=== PATIENT | female | born 1965 | race Caucasian/White ===

== ENCOUNTER 2020-03-01 11:29 | Emergency (ER) | payer BC, OTHER ==
[2020-03-01 11:44] VITALS: PULSE 98
[2020-03-01] MEDS ORDERED: Sodium Chloride 0.9% 10 ML Syringe FLUSH PRN (11:57)
[2020-03-01] MEDS ORDERED: Iopamidol 612 MG/ML 100 ML Bottle IVPUSH ONE (12:15)
[2020-03-01] MEDS ORDERED: Sodium Chloride 0.9% 1,000 ML IV ONE (12:44)
[2020-03-01 12:47] LABS: ANION GAP 16.5 mEq/L (7-13); CHLORIDE,CL 101 mmol/L (98-107); SODIUM,NA 138 mmol/L (136-145)
[2020-03-01] MEDS ORDERED: Ondansetron 4 MG/2 ML SDV IVPUSH ONE ×2 (12:49→14:55)
[2020-03-01] MEDS ORDERED: fentaNYL 100 MCG/2 ML SDV IVPUSH ONE ×2 (12:54→14:51)
--- NOTE | 2020-03-01 13:11 | CT ---
PROCEDURE INFORMATION: Exam: CT Abdomen And Pelvis Without And With Contrast; Kidneys Exam date and time: 03/01/2020 12:22 PM Age: 54 years old Clinical indication: Abdominal pain; Localized; Left; Additional info: Hematuria TECHNIQUE: Imaging protocol: Computed tomography of the abdomen and pelvis without and with intravenous contrast. Exam focused on the kidneys. Radiation optimization: All CT scans at this facility use at least one of these dose optimization techniques: automated exposure control; mA and/or kV adjustment per patient size (includes targeted exams where dose is matched to clinical indication); or iterative reconstruction. Contrast material: ISOVUE 300; Contrast volume: 100 ml; Contrast route: INTRAVENOUS (IV); COMPARISON: No relevant prior studies available. FINDINGS: Lungs: Liver: Normal. Gallbladder and bile ducts: Gallstone. Pancreas: Normal. Spleen: Normal Adrenals: Normal. Kidneys and ureters: Enhancing inhomogeneous left upper pole renal cortical mass 8.3 x 8.3 x 7.5 cm. Tortuous enlarged veins draining the left upper pole mass. The left renal pelvis is distended due to the presence of hyperdense material or fluid that extends into and through the full length of the left ureter, also slightly enlarged, and is associated with a bladder mass mass surrounded by that measures up to 5.3 x 2.9 cm. The right kidney is normal. There is a 7 mm nonenhancing hypodensity in mid left renal cortex which is compatible with a benign cyst. Accessory right renal artery. Stomach and bowel: Mild colonic diverticulosis. Appendix: Normal appendix. Intraperitoneal space: No ascites, pneumoperitoneum or peritoneal lesion. Lymph nodes: No mesenteric, retroperitoneal or inguinal adenopathy. Vasculature: No occlusion, dissection or aneurysm. Bladder: Normal. Reproductive: Normal uterus and ovaries. Bones/joints: No acute fracture or suspicious osseous lesion. Soft tissues: No mass or hernia. IMPRESSION: Large in highly suspicious left upper pole renal mass 8.3 x 0.3 x 7.5 cm seen in association with masslike high density material extending throughout the left renal collecting system and collecting in the bladder. This indicates presence of blood clot throughout the left urinary collecting system. There are no suspicious associated findings such as venous invasion or thrombosis or retroperitoneal adenopathy. Urologic consultation should be performed.
[2020-03-01 15:02] VITALS: BP 184/96
--- NOTE | 2020-03-01 15:09 | EDM.PDOC ---
Scribed by Dariela Tavarez 03/01/20 [id number] for Chelsea Alvarenga MD ED HPI GENERAL MEDICAL PROBLEM - General Chief Complaint: Genitourinary Problem Stated Complaint: kidney stones Time Seen by Provider: 03/01/20 11:47 Source of Information: Reports: Patient, RN, RN Notes Reviewed History Limitations: Reports: No Limitations - History of Present Illness INITIAL COMMENTS - FREE TEXT/NARRATIVE: Patient presents to ED stating she has blood in her urine as well as lower abdominal cramping. This started this morning with a little blood. Then came the cramping and the pain radiates around her left side to her back. Currently an achy feeling. Now it has progressed to bleeding all the time, not just when she pees. No fevers or chills. Has had kidney stones before. She has had bladder prolapse before. She had surgical for the bladder prolapse. She has a history of IBS. Last period was 10 to 12 years when she went through early menopause. Up to date on health maintenance. Onset: Today Duration: Getting Worse Location: Reports: Abdomen, Back Quality: Reports: Ache Severity: Moderate Improves with: Reports: None, Immobilization Worsens with: Reports: None Associated Symptoms: Reports: No Other Symptoms - Related Data Allergies Allergy/AdvReac Type Severity Reaction Status Date / Time amoxicillin [From Augmentin] Allergy Diarrhea Verified 06/02/16 07:10 azithromycin Allergy Rash Verified 06/02/16 07:10 cefdinir [From Omnicef] Allergy Rash Verified 06/02/16 07:10 ceftriaxone Allergy Rash Verified 06/02/16 07:10 clavulanic acid Allergy Diarrhea Verified 06/02/16 07:10 [From Augmentin] codeine Allergy Rash Verified 06/02/16 07:10 ibuprofen Allergy Rash Verified 06/02/16 07:10 ketorolac Allergy Rash Verified 06/02/16 07:10 metronidazole [From Flagyl] Allergy Rash Verified 06/02/16 07:10 Sulfa (Sulfonamide Allergy Rash Verified 06/02/16 07:10 Antibiotics) Home Meds: Home Meds Calcium Carbonate/Vitamin D3 [Calcium 600 + Vit D 400 Softgl] 1 tab PO BID 05/31/16 [History] Esomeprazole Magnesium [Nexium] 1 tab PO DAILY 05/31/16 [History] Multivitamin [Multivitamins] 1 tab PO DAILY 05/31/16 [History] Sertraline [Zoloft] 150 mg PO DAILY 05/31/16 [History] Past Medical History HEENT History: Reports: Allergic Rhinitis, Sinusitis Cardiovascular History: Reports: High Cholesterol Respiratory History: Reports: None Gastrointestinal History: Reports: GERD, Irritable Bowel Syndrome Genitourinary History: [employer] History: Reports: Musculoskeletal History: Reports: Arthritis Neurological History: Reports: None Psychiatric History: Reports: Anxiety, Panic Attack Endocrine/Metabolic History: Reports: None Hematologic History: Reports: None Immunologic History: Reports: None Oncologic (Cancer) History: Reports: None Dermatologic History: Reports: None - Infectious Disease History Infectious Disease History: Reports: Chicken Pox - Past Surgical History HEENT Surgical History: Reports: Naso-Sinus Surgery Female Surgical History: Reports: Breast Biopsy, LEEP, Other (See Below) Social & Family History - Family History Family Medical History: Noncontributory - Caffeine Use Caffeine Use: Reports: Coffee ED ROS GENERAL - Review of Systems Review Of Systems: Comprehensive ROS is negative, except as noted in HPI. ED EXAM, RENAL/ - Physical Exam Exam: See Below Exam Limited By: No Limitations General Appearance: Alert, WD/WN, No Apparent Distress Eye Exam: Bilateral Eye: EOMI, Normal Inspection, PERRL Ears: Normal External Exam, Normal Canal, Hearing Grossly Normal, Normal TMs Nose: Normal Inspection, Normal Mucosa, No Blood Throat/Mouth: Normal Inspection, Normal Lips, Normal Teeth, Normal Gums, Normal Oropharynx, Normal Voice, No Airway Compromise Head: Atraumatic, Normocephalic Neck: Normal Inspection, Supple, Non-Tender, Full Range of Motion Respiratory/Chest: No Respiratory Distress, Lungs Clear, Normal Breath Sounds, No Accessory Muscle Use, Chest Non-Tender Cardiovascular: Normal Peripheral Pulses, Regular Rate, Rhythm, No Edema, No Gallop, No JVD, No Murmur, No Rub GI/Abdominal: Normal Bowel Sounds, Soft, Tender (left lower quadrant and suprapubic. ). No: Guarding, Rebound (Female) Exam: Deferred Rectal (Female) Exam: Deferred Back Exam: Normal Inspection, Full Range of Motion. No: CVA Tenderness (L), CVA Tenderness (R) Extremities: Normal Inspection, Normal Range of Motion, Non-Tender, Normal Capillary Refill, No Pedal Edema Neurological: Alert, Oriented, CN II-XII Intact, Normal Cognition, Normal Gait, Normal Reflexes, No Motor/Sensory Deficits Psychiatric: Normal Affect, Normal Mood Skin Exam: Warm, Dry, Intact, Normal Color, No Rash Lymphatic: No Adenopathy Course - Vital Signs Last Recorded V/S: Last Vital Signs Temp 97.9 F 03/01/20 11:43 Pulse 98 03/01/20 11:43 Resp 18 03/01/20 11:43 BP 181/101 H 03/01/20 11:43 Pulse Ox 98 03/01/20 11:43 - Orders/Labs/Meds Orders: Active Orders 24 hr Category Date Time Status Peripheral IV Care [RC] . DIRECTED Care 03/01/20 11:58 Active CULTURE URINE [RM] Stat Lab 03/01/20 11:31 Received Sodium Chloride 0.9% [Saline Flush] Med 03/01/20 11:57 Active 10 ml FLUSH ASDIRECTED PRN Peripheral IV Insertion Adult [OM.PC] Stat Oth 03/01/20 11:55 Ordered Medication Orders Sodium Chloride (Saline Flush) 10 ml FLUSH ASDIRECTED PRN PRN Reason: Keep Vein Open Last Admin: 03/01/20 12:15 Dose: 10 ml Documented by: FOREST Labs: Laboratory Tests 03/01/20 03/01/20 03/01/20 Range/Units 11:31 12:19 12:19 WBC 10.9 H (5.0-10.0) 10^3/uL RBC 5.36 (4.2-5.4) 10^6/uL Hgb 15.0 (12.0-16.0) g/dL Hct 44.1 (37.0-47.0) % MCV 82.3 (80-100) fL MCH 28.0 (27.0-34.0) pg MCHC 34.0 (33.0-35.0) g/dL Plt Count 288 (150-450) 10^3/uL Neut % (Auto) 85.8 H (42.2-75.2) % Lymph % (Auto) 11.6 L (20.5-50.1) % [place] % (Auto) 2.0 (2-8) % Eos % (Auto) 0.1 L (1.0-3.0) % Baso % (Auto) 0.5 (0.0-1.0) % Sodium 138 (136-145) mmol/L Potassium 4.5 (3.5-5.1) mmol/L Chloride 101 (98-107) mmol/L Carbon Dioxide 25 (21-32) mmol/L Anion Gap 16.5 H (7-13) mEq/L BUN 17 (7-18) mg/dL Creatinine 0.77 (0.55-1.02) mg/dL Est Cr Clr Drug Dosing 79.10 mL/min Estimated GFR (MDRD) > 60 BUN/Creatinine Ratio 22.1 (No establ ref range) Glucose 106 H (74-99) mg/dL Calcium 9.2 (8.5-10.1) mg/dL Total Bilirubin 0.4 (0.2-1.0) mg/dL AST 24 (15-37) U/L ALT 29 (14-59) U/L Alkaline Phosphatase 99 (46-116) U/L Total Protein 8.3 H (6.4-8.2) g/dL Albumin 4.1 (3.4-5.0) g/dL Globulin 4.2 Albumin/Globulin Ratio 1.0 Urine Color Red (YELLOW) Urine Appearance Clear (CLEAR) Urine pH 8.5 (5.0-9.0) Ur Specific [place] 1.015 (1.005-1.030) Urine Protein >=300 H (NEGATIVE) Urine Glucose (UA) 100 H (NEGATIVE) Urine Ketones 15 H (NEGATIVE) Urine Occult Blood Large H (NEGATIVE) Urine Nitrite Positive H (NEGATIVE) Urine Bilirubin Large H (NEGATIVE) Urine Urobilinogen 2.0 H (0.2-1.0) mg/dL Ur Leukocyte Esterase Large H (NEGATIVE) Urine RBC Packed H /HPF Urine WBC 0-5 (0-5/HPF) /HPF Ur Epithelial Cells Rare (NOT SEEN) /HPF Urine Bacteria Not seen (0-FEW/HPF) /HPF Meds: Medications Generic Name Dose Route Start Last Admin Trade Name Freq PRN Reason Stop Dose Admin Sodium Chloride 10 ml 03/01/20 11:57 03/01/20 12:15 Saline Flush FLUSH 10 ml ASDIRECTED PRN Administration Keep Vein Open Discontinued Medications Generic Name Dose Route Start Last Admin Trade Name Freq PRN Reason Stop Dose Admin Fentanyl 50 mcg 03/01/20 12:54 03/01/20 13:01 Sublimaze IVPUSH 03/01/20 12:55 50 mcg ONETIME ONE Administration Fentanyl 50 mcg 03/01/20 14:51 Sublimaze IVPUSH 03/01/20 14:52 ONETIME ONE Sodium Chloride 1,000 mls @ 999 mls/hr 03/01/20 12:44 03/01/20 13:01 Normal Saline IV 03/01/20 13:44 999 mls/hr .BOLUS ONE Administration Iopamidol 100 ml 03/01/20 12:15 03/01/20 12:37 Isovue-300 (61%) IVPUSH 03/01/20 12:16 100 ml ONETIME ONE Administration Ondansetron HCl 4 mg 03/01/20 12:49 03/01/20 13:02 Zofran IVPUSH 03/01/20 12:50 4 mg ONETIME ONE Administration Ondansetron HCl 4 mg 03/01/20 14:55 Zofran IVPUSH 03/01/20 14:56 ONETIME ONE - Radiology Interpretation Free Text/Narrative:: CT abdomen/pelvis impression: Large in highly suspicious left upper pole renal mass 8.3x0.3x7.5 cm seen in association with masslike high density material extending throughout the left renal collecting system and collecting in the bladder. This indicates presence of blood clot throughout the left urinary collecting system. There are no suspicious associated findings such as venous invasions or thrombosis or retroperitoneal adenopathy. Urologic consultation should be performed. - Re-Assessments/Exams Free Text/Narrative Re-Assessment/Exam: Pt continued to pass blood clots in the urine that became larger while in the ER. Her pain also intensified in her lower abdomen, radiating to her left flank. She remains hemodynamically stable. 03/01/20 15:05 Departure - Departure Time of Disposition: 15:09 Disposition: DC/Tfer to Acute Hospital 02 Condition: Fair Clinical Impression: Renal mass Hematuria Qualifiers: Hematuria type: gross Qualified Code(s): R31.0 - Gross hematuria - Discharge Information *PRESCRIPTION DRUG MONITORING PROGRAM REVIEWED*: Not Applicable *COPY OF PRESCRIPTION DRUG MONITORING REPORT IN PATIENT HUNTER: Not Applicable Forms: ED Department Discharge, [facility] Sepsis Event Note (ED) - Evaluation Sepsis Screening Result: No Definite Risk - Focused Exam Vital Signs: Vital Signs Temp Pulse Resp BP Pulse Ox 03/01/20 11:43 97.9 F 98 18 181/101 H 98 - My Orders Last 24 Hours: My Active Orders 03/01/20 11:31 CULTURE URINE [RM] Stat 03/01/20 11:55 Peripheral IV Insertion Adult [OM.PC] Stat 03/01/20 11:57 Sodium Chloride 0.9% [Saline Flush] 10 ml FLUSH ASDIRECTED PRN 03/01/20 11:58 Peripheral IV Care [RC] . DIRECTED - Assessment/Plan Last 24 Hours: My Active Orders 03/01/20 11:31 CULTURE URINE [RM] Stat 03/01/20 11:55 Peripheral IV Insertion Adult [OM.PC] Stat 03/01/20 11:57 Sodium Chloride 0.9% [Saline Flush] 10 ml FLUSH ASDIRECTED PRN 03/01/20 11:58 Peripheral IV Care [RC] . DIRECTED Assessment:: 54 yo female who presents for hematuria and flank pain found to have a renal mass with significant blood clot in the collecting system. Plan: [facility] is on diversion discussed case with Rich, who accepted the transfer fentanyl IV for pain control I have read and agree with the documentation that has been completed regarding this visit. By signing this record, I attest that the documentation was completed in my physical presence and is an accurate record of the encounter.
== END 2020-03-01 15:12 ==
LOC: DL.ED 11:29
DX: R31.0 Gross hematuria (principal); N28.89 Other specified disorders of kidney and ureter; F41.9 Anxiety disorder, unspecified; M19.90 Unspecified osteoarthritis, unspecified site; K21.9 Gastro-esophageal reflux disease without esophagitis; Z88.2 Allergy status to sulfonamides; Z88.5 Allergy status to narcotic agent; Z79.899 Other long term (current) drug therapy; Z88.6 Allergy status to analgesic agent; Z88.1 Allergy status to other antibiotic agents; Z88.0 Allergy status to penicillin
CPT/HCPCS: 36415; 74178; 80053; 81001; 85025; 87086; 96361; 96374; 96375; 96376; 99285; J2405; J3010; J7030; Q9967; 99284